=== PATIENT | female | born 1990 | race African-American/Black ===

== ENCOUNTER 2018-09-25 16:18 | Emergency (ER) | payer OTHER ==
[2018-09-25] MEDS ORDERED: NS 1,000 ML IV ONE ×2 (16:26→17:57)
--- NOTE | 2018-09-25 16:29 | EDPHY ---
H & P Source: Patient, Family, Police, EMS Exam Limitations: Clinical condition Time Seen by Provider: 09/25/18 16:26 HPI/ROS: HPI CHIEF COMPLAINT: Acute agitated combative behavior requiring restraints by EMS and police escort. HISTORY OF PRESENT ILLNESS: 27-year-old female unknown medical history presents emergency room by EMS with police escort restrained for acute agitated combative behavior. The patient was out in traffic fighting with cars and screaming at traffic acting psychotic per EMS and police. The patient then lunged at the police requiring them to place her in handcuffs. EMS was contacted she was given 5 mg IM Versed. She arrives to the emergency room sedated, sleeping. She received 5 mg IM Versed prior to arrival. She is not acutely agitated here. History is unobtainable due to sedation. History comes only from police and EMS. No trauma on exam. No trauma reported Past Medical History: Unknown Past Surgical History: Unknown Social History: Unknown Family History: Unknown ROS REVIEW OF SYSTEMS: Sedation prior to arrival. Exam Constitutional sleeping. Stated prior to arrival. Vital signs noted. Blood pressure noted 89s/50s Eyes normal conjunctivae and sclera, EOMI, PERRLA. HENT normal inspection, atraumatic, moist mucus membranes, no epistaxis, neck supple/ no meningismus, no raccoon eyes. Respiratory clear to auscultation bilaterally, normal breath sounds, no respiratory distress, no wheezing. Cardiovascular rate normal, regular rhythm, no murmur, no edema, distal pulses normal. Gastrointestinal soft, non-tender, no rebound, no guarding, normal bowel sounds, no distension, no pulsatile mass. Genitourinary no CVA tenderness. Musculoskeletal no midline vertebral tenderness, full range of motion, no calf swelling, no tenderness of extremities, no meningismus, good pulses, neurovascularly intact. Skin pink, warm, & dry, no rash, skin atraumatic. Neurologic lethargic, sleeping. Snoring Psychiatric normal mood/affect. Heme/Lymph/Immune no lymphadenopathy. 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 Re-evaluate. Monitor for worsening condition. Monitor closely for further sedation. Once the patient is more alert and awake will obtain a history. Re-evaluation: 2199: Patient here in emergency room was highly intoxicated with alcohol received Versed prior to arrival. She was out running in traffic in acting erratically. Patient is now much more sober needs mental health evaluation. Serum alcohol level 230. 2223PM: Patient signed over to Dr. Davila Pending Sobriety at that needs re- evaluation. Most likely will need mental health evaluation. Blood pressure 104/62 Blood pressure 104/62 (Erasmo Guzman) 6:38 a.m.- Patient was seen by the mental health program evaluator now that she is sober. She is not suicidal or homicidal and does not have any psychosis. The hold will be lifted and she will be discharged home. (Trini Davila) Constitutional: Initial Vital Signs Temperature (C) 36.4 C 09/25/18 16:33 Heart Rate 88 09/25/18 16:33 Respiratory Rate 19 09/25/18 16:33 Blood Pressure 86/52 L 09/25/18 16:33 O2 Sat (%) 93 09/25/18 16:33 O2 Delivery Mode Room Air Allergies/Adverse Reactions: No Known Allergies Allergy (Unverified 09/25/18 16:44) Home Medications: Medication Instructions Recorded Unobtainable 09/25/18 - Data Points Laboratory Results: Laboratory Results 09/25/18 16:18 09/25/18 16:18 09/25/18 09/25/18 21:29 21:29 Urine Color YELLOW Urine Appearance CLEAR Urine pH 6.0 (5.0-7.5) Ur Specific [place] 1.010 (1.002-1.030) Urine Protein NEGATIVE (NEGATIVE) Urine Ketones NEGATIVE (NEGATIVE) Urine Blood NEGATIVE (NEGATIVE) Urine Nitrate NEGATIVE (NEGATIVE) Urine Bilirubin NEGATIVE (NEGATIVE) Urine Urobilinogen NEGATIVE EU EU (0.2-1.0) Ur Leukocyte Esterase NEGATIVE (NEGATIVE) Urine Glucose NEGATIVE (NEGATIVE) Urine Opiates Screen NEGATIVE (NEGATIVE) Urine Barbiturates NEGATIVE (NEGATIVE) Ur Phencyclidine Scrn NEGATIVE (NEGATIVE) Ur Amphetamine Screen NEGATIVE (NEGATIVE) U Benzodiazepines Scrn NEGATIVE (NEGATIVE) Urine Cocaine Screen NEGATIVE (NEGATIVE) U Marijuana (THC) Screen NON-NEGATIVE H (NEGATIVE) Medications Given: Discontinued Medications Sodium Chloride (Ns) 1,000 mls @ 0 mls/hr IV EDNOW ONE; Wide Open PRN Reason: Protocol Stop: 09/25/18 16:27 Last Admin: 09/25/18 16:42 Dose: 1,000 mls Sodium Chloride (Ns) 1,000 mls @ 0 mls/hr IV EDNOW ONE; Wide Open PRN Reason: Protocol Stop: 09/25/18 17:58 Last Admin: 09/25/18 17:57 Dose: 1,000 mls Departure - Departure Disposition: Home, Routine, Self-Care Clinical Impression: Alcohol intoxication Qualifiers: Complication of substance-induced condition: with delirium Qualified Code(s): F10.921 - Alcohol use, unspecified with intoxication delirium Condition: Good Instructions: At-Risk Alcohol Use (ED) Additional Instructions: Please return to the emergency department if your worse in any way. Referrals: [facility],. [Clinic] - As per Instructions
[2018-09-25 16:41] LABS: PLATELET COUNT 202 10^3/uL (150-400)
[2018-09-26 06:44] VITALS: BP 113/70
--- NOTE | 2018-09-26 06:56 | ASMTLCPROG ---
Notes Note: Notes: Pt brought in on M1 hold for being gravely disabled, a danger to others and to herself, while intoxicated. Pt's BAL was 230. [facility] clinician met with pt, when she was sober,to evaluate whether she required a mental health assessment. Pt alert and eager to engage in assessment. Behavior was appropriate and cooperative. It was never aggressive; mood was anxious, but stable. Thinking was organized, linear and lucid. She denied any hallucinations. She has experienced SI in the past, but denies it currently. She denies ever planning for or attempting suicide. She has no memory of last night aside from drinking beer. She states that she is homeless. She normally drinks 1-4 beers a day, beginning in the late evening. Yesterday she began drinking at 1:00PM. She reports having been sober for 48 hours prior. This is the first time she has blacked out. She reports drinking on and off for 6-7 years, ever since moving here from [facility]. She states that if she can use marijuana, then she will not drink. "Marijuana helps me pass time without thinking about things". Pt went through [facility] and was assigned to [facility]. Due to an event, which she could not provide details for, she was unable to return there and has been sleeping in the [facility]. She states that on nights that it is not open and she sleeps outside, she drinks. Pt was encouraged to return to [facility] to seek reassessment for [facility]. Pt was given contact information for [facility], [facility], [facility]. The last 3 agencies provide both mental health and substance abuse counseling. Pt states that she begins [facility] tomorrow; she does not recall what class is on Thursday's schedule. Date Signed: 09/26/2018 06:55 AM Electronically Signed By:Rebecca Sethi
== END 2018-09-26 07:06 | disposition home or self-care (01) ==
DX: F10.921 Alcohol use, unspecified with intoxication delirium (principal)
CPT/HCPCS: 80305; G0480

== ENCOUNTER 2018-09-29 12:17 | Emergency (ER) | payer OTHER ==
[2018-09-29] MEDS ORDERED: ACETAMINOPHEN 500 MG TAB PO ONE (12:55)
[2018-09-29] MEDS ORDERED: IBUPROFEN 600 MG TAB PO ONE (12:55)
--- NOTE | 2018-09-29 12:57 | EDPHY ---
H & P Stated Complaint: fell onto left knee two days ago Time Seen by Provider: 09/29/18 12:25 HPI/ROS: Chief complaint: Left knee pain History of present illness: This is a 27-year-old female who presents to the emergency department with EMS for left knee pain. She states 2 days ago she tripped and fell landing directly onto her knee. Since then she has had pain. It makes difficult to sit down or stand up. However she can still walk on it. She denies open wounds. She denies abnormal coolness or paresthesias in the leg. No other trauma reported. - Personal History LMP (Females 10-55): 8-14 Days Ago Current Tetanus Diphtheria and Acellular Pertussis (TDAP): Yes - Medical/Surgical History Hx Asthma: No Hx Chronic Respiratory Disease: No Hx Diabetes: No Hx Cardiac Disease: No Hx Renal Disease: No Hx Alcoholism: Yes Hx HIV/AIDS: No Hx Splenectomy or Spleen Trauma: No Other PMH: Unknown. - Social History Smoking Status: Current every day smoker - Physical Exam Exam: General: Alert, nontoxic. Skin: Old scars to the anterior knee, no acute wounds. Musculoskeletal: She reports severe pain even with very light touch to the anterior aspect of the knee. The rest the knee is nontender. She can flex and extend it well. Knee joint appears grossly stable. Vascular: DP and PT pulses 2+. Neurologic: Sensation intact in the left leg. Constitutional: Initial Vital Signs Temperature (C) 36.4 C 09/29/18 12:23 Heart Rate 96 09/29/18 12:23 Respiratory Rate 16 09/29/18 12:23 Blood Pressure 122/64 H 09/29/18 12:23 O2 Sat (%) 99 09/29/18 12:23 O2 Delivery Mode Room Air Allergies/Adverse Reactions: No Known Allergies Allergy (Unverified 09/25/18 16:44) Home Medications: Medication Instructions Recorded Unobtainable 09/25/18 Medical Decision Making - Diagnostics Imaging Results: Imaging Impressions Knee X-Ray 09/29/18 12:22 Impression: There is no acute osseous abnormality identified. If there is further clinical concern regarding the patient's ongoing knee pain, consider MR imaging. Imaging: I viewed and interpreted images myself Procedures: Procedure: Splint placement. A Velcro knee immobilizing splint was applied. After application of the splint I returned and re-examined the patient. The splint was adequately immobilizing the joint and distal to the splint the patient's circulation and sensation was intact. Patient was fitted with crutches and given instructions ED Course/Re-evaluation: Patient seen under the supervision of my secondary supervising physician Dr. Aleks Dalton. Patient presents for left knee pain after a traumatic injury. The leg is neurovascularly intact. X-rays negative. Likely a soft tissue injury. Home care was discussed. She is referred to Orthopedics for recheck. Return precautions were given. Differential Diagnosis: Included but not limited to contusion, bursitis, sprain or strain, meniscal injury, bony fracture - Data Points Medications Given: Discontinued Medications Acetaminophen (Tylenol) 1,000 mg PO EDNOW ONE Stop: 09/29/18 12:56 Last Admin: 09/29/18 13:01 Dose: 1,000 mg Ibuprofen (Motrin) 600 mg PO EDNOW ONE Stop: 09/29/18 12:56 Last Admin: 09/29/18 13:01 Dose: 600 mg Departure - Departure Disposition: Home, Routine, Self-Care Clinical Impression: Knee pain Qualifiers: Chronicity: acute Laterality: left Qualified Code(s): M25.562 - Pain in left knee Condition: Good Instructions: Knee Pain (ED) Additional Instructions: Follow-up with orthopedics for continued evaluation and care Use ibuprofen 600 mg 3 times a day for the next 2-3 days for pain control If symptoms worsen or new symptoms develop return to the emergency room for recheck Referrals: NONE *PRIMARY CARE P,. [Primary Care Provider] - As per Instructions Rubens Cordero MD [Medical Doctor] - As per Instructions
[2018-09-29 13:16] VITALS: BP 126/74
== END 2018-09-29 13:34 | disposition home or self-care (01) ==
LOC: EDUNIT#
DX: M25.562 Pain in left knee (principal)
CPT/HCPCS: L1830

== ENCOUNTER 2018-10-06 16:22 | Emergency (ER) | payer OTHER ==
[2018-10-06] MEDS ORDERED: ACETAMINOPHEN 500 MG TAB PO ONE (17:54)
--- NOTE | 2018-10-06 17:57 | EDPHY ---
H & P Stated Complaint: left knee pain x 1 week. Time Seen by Provider: 10/06/18 17:55 HPI/ROS: CHIEF COMPLAINT: Left knee pain HISTORY OF PRESENT ILLNESS: Patient is a 27-year-old homeless female who called an ambulance complaining of left knee pain today. She was seen here a week ago for the same. She states that she fell and kneeling position and had severe pain over the distal aspect of her patella. She had x-rays done which were unremarkable. She was discharged in a straight leg brace and receive Tylenol. She states that she has done well until today when she took her brace off because she thought she was better. Throughout the day her pain gradually worsened to the point where she states she could not walk. She called an ambulance and was brought here. However in the waiting room she began chasing some of the other patients around and was running on her knee. She did not limp or show any signs of pain at the time. She now tells me that she has severe pain and trouble moving her leg. She is able to extend her knee without difficulty from the side of the gurney. No obvious swelling or deformity. No erythema Severity: Severe Modifying factors: Patient seems pain-free when not being examined or questioned. REVIEW OF SYSTEMS: Constitutional: denies: chills, fever, recent illness, recent injury EENTM: denies: blurred vision, double vision, nose congestion Respiratory: denies: cough, shortness of breath Cardiac: denies: chest pain, irregular heart rate, lightheadedness, palpitations Gastrointestinal/Abdominal: denies: abdominal pain, diarrhea, nausea, vomiting, blood streaked stools Genitourinary: denies: dysuria, frequency, hematuria, pain Musculoskeletal: See HPI Skin: denies: lesions, rash, jaundice, bruising Neurological: denies: headache, numbness, paresthesia, tingling, dizziness, weakness Hematologic/Lymphatic: denies: blood clots, easy bleeding, easy bruising Immunologic/allergic: denies: HIV/AIDS, transplant 10 systems reviewed and negative except as noted EXAM: GENERAL: Well-appearing, well-nourished and in no acute distress. HEAD: Atraumatic, normocephalic. EYES: Pupils equal round and reactive to light, extraocular movements intact, sclera anicteric, conjunctiva are normal. ENT: TMs normal, nares patent, oropharynx clear without exudates. Moist mucous membranes. NECK: Normal range of motion, supple without lymphadenopathy or JVD. LUNGS: Breath sounds clear to auscultation bilaterally and equal. No wheezes rales or rhonchi. HEART: Regular rate and rhythm without murmurs, rubs or gallops. ABDOMEN: Soft, nontender, normoactive bowel sounds. No guarding, no rebound. No masses appreciated. BACK: No CVA tenderness, no spinal tenderness, step-offs or deformities EXTREMITIES: Left knee pain, no swelling or deformity. No erythema. Able to extend knee from hanging off the side of the bed. Able to bear weight. NEUROLOGICAL: Cranial nerves II through XII grossly intact. Normal speech, normal gait. 5/5 strength, normal movement in all extremities, normal sensation , normal reflexes PSYCH: Normal mood, normal affect. SKIN: Warm, dry, normal turgor, no visible rashes or lesions. Source: Patient Exam Limitations: No limitations - Personal History Current Tetanus Diphtheria and Acellular Pertussis (TDAP): Yes - Medical/Surgical History Hx Asthma: No Hx Chronic Respiratory Disease: No Hx Diabetes: No Hx Cardiac Disease: No Hx Renal Disease: No Hx Alcoholism: Yes Hx HIV/AIDS: No Hx Splenectomy or Spleen Trauma: No Other PMH: Unknown. - Social History Smoking Status: Current every day smoker Constitutional: Initial Vital Signs Temperature (C) 37.1 C 10/06/18 17:06 Heart Rate 76 10/06/18 17:06 Respiratory Rate 18 10/06/18 17:06 Blood Pressure 98/67 L 10/06/18 17:06 O2 Sat (%) 96 10/06/18 17:06 O2 Delivery Mode Room Air Allergies/Adverse Reactions: No Known Allergies Allergy (Unverified 09/25/18 16:44) Home Medications: Medication Instructions Recorded Unobtainable 09/25/18 Medical Decision Making - Diagnostics Imaging Results: Imaging Impressions Knee X-Ray 10/06/18 17:54 Impression: No acute osseous findings. Imaging: Discussed imaging studies w/ call center operator Radiologist ED Course/Re-evaluation: I suggested that we repeat the x-ray and treat her again with Tylenol and replace her straight leg brace. She asked how long that were taken tells me that she needs to leave before it gets too dark. 6:30 p.m. The patient's x-rays reassuring. No sign of fracture. Has been placed back in a straight leg brace and is able to ambulate. Will discharge at this time. She is eager to go. Discussed indications for returning. Differential Diagnosis: Partial list of the Differential diagnosis considered include but were not limited to; contusion, traumatic bursitis and although unlikely based on the history and physical exam, I also considered patella fracture, tendon rupture, tibial plateau fracture, occult fracture, compartment syndrome. I discussed these differential diagnoses and the plan with the patient as well as the usual and expected course. The patient understands that the diagnosis is provisional and that in medicine we are not always correct and that further workup is often warranted. Usual and customary warnings were given. All of the patient's questions were answered. The patient was instructed to return to the emergency department should the symptoms at all worsen or return, otherwise to followup with the physician as we discussed. - Data Points Medications Given: Discontinued Medications Acetaminophen (Tylenol) 1,000 mg PO EDNOW ONE Stop: 10/06/18 17:55 Last Admin: 10/06/18 18:04 Dose: 1,000 mg Departure - Departure Disposition: Home, Routine, Self-Care Clinical Impression: Left anterior knee pain Condition: Fair Instructions: Knee Pain (ED) Referrals: NONE *PRIMARY CARE P,. [Primary Care Provider] - As per Instructions Saravanan Anderson MD [Medical Doctor] - 5-7 days, call for appt.
[2018-10-06 18:48] VITALS: BP 118/79
--- NOTE | 2018-10-07 12:37 | ASMTCAGE ---
CAGE Additional Comments CM SBIRT order received from patient' svisit last evening. Chart reviewed. Patient w history of alcoholism. CM available to provide resources prn Date Signed: 10/07/2018 12:36 PM Electronically Signed By:Jennifer Sumner RN
== END 2018-10-06 18:48 | disposition home or self-care (01) ==
LOC: EDUNIT#
DX: M25.562 Pain in left knee (principal); Z59.0 Homelessness

== ENCOUNTER 2018-10-10 19:05 | Emergency (ER) | payer OTHER ==
--- NOTE | 2018-10-10 19:13 | EDPHY ---
H & P Time Seen by Provider: 10/10/18 19:05 HPI/ROS: CHIEF COMPLAINT: Medical screening for incarceration HISTORY OF PRESENT ILLNESS: 27-year-old homeless female arrives via ambulance accompanied by police for medical screening prior to incarceration allegedly for outstanding warrants. Per EMS and police she was found running in traffic, was running from police. Eventually she was apprehended and brought to the ER. She has no complaints of pain or discomfort. She was acting aggressively, spitting, necessitated 4 point restraints and a spit ramírez. She admits to alcohol use. Denies: Head injury, chest pain or injury, back pain injury, abdominal pain or injury, suicidal or homicidal ideation REVIEW OF SYSTEMS: 10 systems reviewed and negative with the exception of the elements mentioned in the history of present illness PAST MEDICAL & SURGICAL HISTORY: No pertinent medical or surgical history SOCIAL HISTORY: Self admitted alcohol use this evening. Homeless PHYSICAL EXAM (Prior to examination, patient consented to physical exam, hands were washed and my usual and customary physical exam procedures followed) 1) GENERAL: Untidy, foul-smelling, [address] with patient making aggressive gestures and movements trying to get out of the restraints. She is not actively spitting but there is spit on her spit ramírez. She is cursing. 2) HEAD: Normocephalic, atraumatic 3) HEENT: Pupils equal, round, reactive to light bilaterally. Sclera anicteric. 4) NECK: Full range of motion, no meningeal signs. 5) LUNGS: Clear auscultation bilaterally, no wheezes, no rhonchi, no retractions. 6) HEART: Regular rate and rhythm, no murmur, no heave, no gallop. 7) ABDOMEN: No guarding, no rebound, no focal tenderness, negative McBurney's, negative Oh's, negative Rovsing's, negative peritoneal sign, 8) MUSCULOSKELETAL: Moving all extremities, no focal areas of tenderness, no obvious trauma. No peripheral edema or discoloration. 9) BACK: No CVA tenderness, no midline vertebral tenderness, no fluctuance, no step-off, no obvious trauma, no visual or palpable abnormality. 10) SKIN: No rash, no petechiae. 11) Psychiatric: Patient is oriented X 3, there is no agitation. DIFFERENTIAL DIAGNOSIS: In no particular orderincluding but not limited to hypoglycemia, infectious process, electrolyte abnormality, head injury and intoxicants. - Medical/Surgical History Hx Asthma: No Hx Chronic Respiratory Disease: No Hx Diabetes: No Hx Cardiac Disease: No Hx Renal Disease: No Hx Alcoholism: Yes Hx HIV/AIDS: No Hx Splenectomy or Spleen Trauma: No Other PMH: Unknown. - Social History Smoking Status: Current every day smoker Constitutional: Initial Vital Signs Heart Rate 105 H 10/10/18 19:11 Respiratory Rate 18 10/10/18 19:11 Blood Pressure 115/70 10/10/18 19:11 O2 Sat (%) 93 10/10/18 19:11 O2 Delivery Mode Room Air Allergies/Adverse Reactions: No Known Allergies Allergy (Unverified 09/25/18 16:44) Home Medications: Medication Instructions Recorded Unobtainable 09/25/18 Medical Decision Making ED Course/Re-evaluation: 7:13 p.m.: Breathalyzer alcohol 162, reviewed old medical records. Patient has been seen emergency department numerous instances. Specifically on 2018 she was seen for acute agitation and combative behavior which resolved upon becoming sober from alcohol. She was also evaluated previously in the ER after she self presented and was chasing patients in the waiting room. At this time I do not identify any focal areas of trauma the patient has no complaints of pain or discomfort. Do not think that imaging of the head or other body region indicated at this time. She will be discharged to skilled nursing, has been medically screened for incarceration. Care of patient under supervision of primary supervising physician Dr Aleks Dalton with whom I discussed case. Departure - Departure Disposition: Law Enforcement/Court/Correction Clinical Impression: Alcohol intoxication Condition: Good Instructions: Alcohol Intoxication (ED) Additional Instructions: You have been medically screened for incarceration Referrals: Patient,NotPresent [Unknown] - As per Instructions
[2018-10-10 19:14] VITALS: BP 115/70
== END 2018-10-10 19:21 ==
LOC: EDUNIT#
DX: F10.920 Alcohol use, unspecified with intoxication, uncomplicated (principal); Z59.0 Homelessness

== ENCOUNTER 2018-10-12 00:49 | Emergency (ER) | payer OTHER ==
[2018-10-12 00:53] VITALS: BP 119/76
--- NOTE | 2018-10-12 00:56 | EDPHY ---
H & P Stated Complaint: cough,chills Time Seen by Provider: 10/12/18 00:50 HPI/ROS: HPI The patient presents with cough, rhinorrhea, subjective fevers since 7:00 p.m. Tonight. She is brought in by ambulance from the [facility] where she presented earlier tonight. She requested ambulance transport to the emergency department for further evaluation. She says she has had a mild dry cough associated with clear rhinorrhea and says she has felt both hot and cold 7 7:00 a.m.. She is not aware of any sick contacts. She denies any other symptoms. Upon review of old records, she has been in the emergency department several times this month for alcohol and medical clearance for fpc. REVIEW OF SYSTEMS 10 systems were reviewed and negative with the exception of the elements mentioned in the history of present illness. PMHx: Denies diabetes or hypertension Soc Hx: From [place] originally, previous visits for alcohol intoxication PHYSICAL General Appearance: Alert, no distress Eyes: Pupils equal and round no pallor or injection ENT, Mouth: Mucous membranes moist, posterior pharynx unremarkable Respiratory: There are no retractions, lungs are clear to auscultation Cardiovascular: Regular rate and rhythm Gastrointestinal: Abdomen is soft and non-tender, no masses, bowel sounds normal Neurological: A&O, moves all extremities Skin: Warm and dry, no rashes Musculoskeletal: Neck is supple non tender Extremities: symmetrical, full range of motion Psychiatric: Patient is oriented X 3, there is no agitation Source: Patient, EMS Exam Limitations: No limitations - Personal History LMP (Females 10-55): Over 28 Days Ago Current Tetanus/Diphtheria Vaccine: Yes - Medical/Surgical History Hx Asthma: No Hx Chronic Respiratory Disease: No Hx Diabetes: No Hx Cardiac Disease: No Hx Renal Disease: No Hx Alcoholism: Yes Hx HIV/AIDS: No Hx Splenectomy or Spleen Trauma: No Other PMH: denies - Social History Smoking Status: Current every day smoker Constitutional: Initial Vital Signs Temperature (C) 36.9 C 10/12/18 00:50 Heart Rate 56 L 10/12/18 00:50 Respiratory Rate 16 10/12/18 00:50 Blood Pressure 119/76 10/12/18 00:50 O2 Sat (%) 97 10/12/18 00:50 O2 Delivery Mode Room Air Allergies/Adverse Reactions: No Known Allergies Allergy (Verified 10/12/18 00:52) Home Medications: Medication Instructions Recorded NK [No Known Home Meds] 10/12/18 Medical Decision Making Differential Diagnosis: 27-year-old homeless female [facility] with URI type symptoms. Vital signs are normal. Patient is well-appearing. Suspect URI, longterm seeking behavior, less likely influenza. I have offered her ibuprofen and Tylenol, however she declines. She will be discharged. Departure - Departure Disposition: Home, Routine, Self-Care Clinical Impression: Homeless URI (upper respiratory infection) Qualifiers: URI type: unspecified URI Qualified Code(s): J06.9 - Acute upper respiratory infection, unspecified Condition: Good Instructions: Upper Respiratory Infection (ED) Additional Instructions: Please make sure to drink plenty of fluids. You can take ibuprofen or Tylenol as needed for your symptoms. Referrals: [facility],. [Clinic] - As per Instructions
== END 2018-10-12 01:01 | disposition home or self-care (01) ==
LOC: EDUNIT#
DX: J06.9 Acute upper respiratory infection, unspecified (principal)

== ENCOUNTER 2018-10-20 17:40 | Emergency (ER) | payer OTHER ==
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
[2018-10-20 18:34] LABS: PLATELET COUNT 284 10^3/uL (150-400)
[2018-10-20 19:31] LABS: CREATINE KINASE 88 IU/L (0-156)
[2018-10-21 00:14] VITALS: BP 110/66
== END 2018-10-21 00:46 ==
LOC: EDUNIT#
DX: F10.920 Alcohol use, unspecified with intoxication, uncomplicated (principal); Y90.8 Blood alcohol level of 240 mg/100 ml or more
CPT/HCPCS: G0480

== ENCOUNTER 2018-12-06 23:06 | Emergency (ER) | payer OTHER ==
[2018-12-06] MEDS ORDERED: LORazepam 2 MG/ML INJ IM ONE ×2 (23:17→23:31)
[2018-12-06] MEDS ORDERED: HALOPERIDOL LACT 5 MG/ML INJ IM ONE (23:17)
--- NOTE | 2018-12-06 23:18 | EDPHY ---
H & P Source: Patient, Police, RN/MD, EMS Exam Limitations: Clinical condition - Medical/Surgical History Hx Asthma: No Hx Chronic Respiratory Disease: No Hx Diabetes: No Hx Cardiac Disease: No Hx Renal Disease: No Hx Alcoholism: Yes Hx HIV/AIDS: No Hx Splenectomy or Spleen Trauma: No Other PMH: Unknown. - Social History Smoking Status: Current every day smoker Time Seen by Provider: 12/06/18 23:15 HPI/ROS: HPI: This is a 27-year-old female who presents with Chief Complaint: M1 hold, erratic psychotic behavior Location: Psychiatric Quality: Erratically, psychotic behavior Duration: Unknown Signs and Symptoms: Timing: Acute on chronic Severity: Severe Context: Patient presents via EMS with spit mask on yelling profanities into the emergency room. transportation officer notice patient walking office a down the road. She was waving her hands when he approached. She was clearly intoxicated and acting erratically. She reports that there were recommend in the road that were talking to her. Patient has a history of alcoholism and had cans of beers present on her. Patient recently bonded out of long term today and has broke for pay hernandez with alcohol intoxication. Modifying Factors: EMS gave IM Haldol 5 mg with no relief Comment: ROS: Limited due to intoxication MEDICAL/SURGICAL/SOCIAL HISTORY: Medical history: Alcoholism Surgical history: Denies Social history: Homeless. + tobacco user. Family history noncontributory. CONSTITUTIONAL: Intoxicated, spit ramírez, uncooperative, thrashing around and yelling and spitting, awake and alert, no obvious distress HEENT: Atraumatic and normocephalic, PERRL, EOMI. Nares patent; no rhinorrhea; no nasal mucosal edema. Tympanic membranes clear. Oropharynx clear, no exudate and moist pink mucosa. Airway patent. No lymphadenopathy. No meningismus. Cardiovascular: Normal S1/S2, tachycardia, regular rhythm, without murmur rub or gallop. PULMONARY/CHEST: Symmetrical and nontender. Clear to auscultation bilaterally. Good air movement. No accessory muscle usage. ABDOMEN: Soft, nondistended, nontender, no rebound, no guarding, no peritoneal signs, no masses or organomegaly. No CVAT. EXTREMITIES: 2/2 pulses, strength 5/5, no deformities, no clubbing, no cyanosis or edema. Swinging arms and legs trying to hit officers. NEUROLOGICAL: no focal neuro deficits. GCS 15. Speech slightly slurred. Spitting. SKIN: Warm and dry, no erythema. no rash. Good capillary refill. (Kathy Spears) Constitutional: Initial Vital Signs Temperature (C) 36.6 C 12/06/18 23:23 Heart Rate 103 H 12/06/18 23:23 Respiratory Rate 18 12/06/18 23:23 Blood Pressure 97/53 L 12/06/18 23:23 O2 Sat (%) 93 12/06/18 23:23 O2 Delivery Mode Room Air Allergies/Adverse Reactions: No Known Allergies Allergy (Verified 12/06/18 23:23) Home Medications: Medication Instructions Recorded Multivitamin [One Daily] 12/06/18 Medical Decision Making ED Course/Re-evaluation: Vital signs reviewed and show tachycardia. Placed on personnel monitor. Due to concerns of staff and patient's safety; placed in 4 point restraints and given IM Haldol 5 mg and IM Ativan 2 mg Agree with M1 hold. Labs and UDS ordered. 2330: Notified by RN that patient sitting up in fighting against 4 point restraints. another IM Ativan 2 mg given 0025: Labs reviewed, potassium 3.1, magnesium level ordered, given IV potassium 20 mEq, creatinine 0.6, EtOH 177. Still waiting urine sample. Given 1 L normal saline as systolic in the 80s while patient is sleeping. 0045: End of Shift. Signed over to Dr. Guzman pending re-evaluation in a.m. and discharge once medically clear to law enforcement. This patient was seen under the supervision of my secondary supervising physician. I evaluated care for this patient with attending. (Kathy Spears) 0533: Patient here in emergency room was yelling upon arrival to the emergency room. She received IM Haldol and IM Ativan. She was also intoxicated with alcohol. At this time she is sleeping. 0633: Patient ambulated well throughout the emergency room without difficulty. She is clinically sober now. She reports to me she had anxiety attack after seeing a raccoon. She is now calmer and cooperative. Clinically sober and safe for discharge. Patient does not appear psychotic does not want hurt herself or anybody else. She sober nicely. Patient was not on M1 hold she was on an arc hold. She presents room somewhat agitated, screaming and psychotic however this was due to acute alcohol intoxication. She sober throughout the night in the emergency room and on re- examination early this morning at 6:30 a.m. She was, cooperative she denies SI or HI denies hallucination does not appear acutely psychotic or gravely disabled. She was just in fact acutely intoxicated with alcohol. She can be safely discharged to police arc. (Erasmo Guzman) Differential Diagnosis: Altered mental status including but not limited to hypoglycemia, infectious process, electrolyte abnormality, head injury and intoxicants. (Kathy Spears) - Data Points Laboratory Results: Laboratory Results 12/06/18 23:56 12/06/18 23:56 12/06/18 12/06/18 12/06/18 23:56 23:56 23:56 WBC RBC Hgb Hct MCV MCH MCHC RDW Plt Count MPV Neut % (Auto) Lymph % (Auto) Hart % (Auto) Eos % (Auto) Baso % (Auto) Nucleat RBC Rel Count Absolute Neuts (auto) Absolute Lymphs (auto) Absolute Monos (auto) Absolute Eos (auto) Absolute Basos (auto) Absolute Nucleated RBC Immature Gran % Immature Gran # Sodium 145 mEq/L mEq/L (135-145) Potassium 3.1 mEq/L L mEq/L (3.5-5.2) Chloride 109 mEq/L mEq/L (97-110) Carbon Dioxide 23 mEq/l mEq/l (22-31) Anion Gap 13 mEq/L mEq/L (6-14) BUN 12 mg/dL mg/dL (7-23) Creatinine 0.6 mg/dL mg/dL (0.6-1.0) Estimated GFR > 60 Glucose 88 mg/dL mg/dL (70-100) Calcium 9.0 mg/dL mg/dL (8.5-10.4) Magnesium 1.9 mg/dL mg/dL (1.6-2.3) Beta HCG, Qual NEGATIVE Urine Opiates Screen Urine Barbiturates Ur Phencyclidine Scrn Ur Amphetamine Screen U Benzodiazepines Scrn Urine Cocaine Screen U Marijuana (THC) Screen Ethyl Alcohol 177 mg/dL H mg/dL (0-10) 12/06/18 12/06/18 23:56 06:15 WBC 6.72 10^3/uL 10^3/uL (3.80-9.50) RBC 4.36 10^6/uL 10^6/uL (4.18-5.33) Hgb 13.0 g/dL g/dL (12.6-16.3) Hct 38.9 % % (38.0-47.0) MCV 89.2 fL fL (81.5-99.8) MCH 29.8 pg pg (27.9-34.1) MCHC 33.4 g/dL g/dL (32.4-36.7) RDW 12.7 % % (11.5-15.2) Plt Count 198 10^3/uL 10^3/uL (150-400) MPV 10.7 fL fL (8.7-11.7) Neut % (Auto) 50.0 % % (39.3-74.2) Lymph % (Auto) 41.4 % % (15.0-45.0) Hart % (Auto) 8.0 % % (4.5-13.0) Eos % (Auto) 0.0 % L % (0.6-7.6) Baso % (Auto) 0.3 % % (0.3-1.7) Nucleat RBC Rel Count 0.0 % % (0.0-0.2) Absolute Neuts (auto) 3.36 10^3/uL 10^3/uL (1.70-6.50) Absolute Lymphs (auto) 2.78 10^3/uL 10^3/uL (1.00-3.00) Absolute Monos (auto) 0.54 10^3/uL 10^3/uL (0.30-0.80) Absolute Eos (auto) 0.00 10^3/uL L 10^3/uL (0.03-0.40) Absolute Basos (auto) 0.02 10^3/uL 10^3/uL (0.02-0.10) Absolute Nucleated RBC 0.00 10^3/uL 10^3/uL (0-0.01) Immature Gran % 0.3 % % (0.0-1.1) Immature Gran # 0.02 10^3/uL 10^3/uL (0.00-0.10) Sodium Potassium Chloride Carbon Dioxide Anion Gap BUN Creatinine Estimated GFR Glucose Calcium Magnesium Beta HCG, Qual Urine Opiates Screen NEGATIVE (NEGATIVE) Urine Barbiturates NEGATIVE (NEGATIVE) Ur Phencyclidine Scrn NEGATIVE (NEGATIVE) Ur Amphetamine Screen NEGATIVE (NEGATIVE) U Benzodiazepines Scrn NEGATIVE (NEGATIVE) Urine Cocaine Screen NEGATIVE (NEGATIVE) U Marijuana (THC) Screen NEGATIVE (NEGATIVE) Ethyl Alcohol Medications Given: Discontinued Medications Haloperidol Lactate (Haldol Injection) 5 mg IM EDNOW ONE Stop: 12/06/18 23:18 Last Admin: 12/06/18 23:21 Dose: 5 mg Sodium Chloride (Ns) 1,000 mls @ 0 mls/hr IV EDNOW ONE; Wide Open PRN Reason: Protocol Stop: 12/07/18 00:38 Last Admin: 12/07/18 00:46 Dose: 1,000 mls Potassium Chloride (Potassium Cl 10 Meq (Premix)) 100 mls @ 100 mls/hr IV Q1H CARI Stop: 12/07/18 02:59 Last Admin: 12/07/18 01:52 Dose: 100 mls Sodium Chloride (Ns) 1,000 mls @ 0 mls/hr IV ONCE ONE PRN Reason: Wide Open Stop: 12/07/18 02:20 Last Admin: 12/07/18 02:22 Dose: 1,000 mls Lorazepam (Ativan Injection) 1 mg IM EDNOW ONE Stop: 12/06/18 23:18 Last Admin: 12/06/18 23:21 Dose: 1 mg Lorazepam (Ativan Injection) 2 mg IM ONCE ONE Stop: 12/06/18 23:32 Last Admin: 12/06/18 23:35 Dose: 2 mg Potassium Chloride (Klor-Con) 40 meq PO ONCE ONE Stop: 12/07/18 00:26 Last Admin: 12/07/18 01:06 Dose: Not Given Departure - Departure Disposition: Home, Routine, Self-Care Clinical Impression: Alcohol intoxication delirium, Hypokalemia Condition: Good Instructions: Alcohol Intoxication (ED) Additional Instructions: 1. Medically cleared for long term. Referrals: [facility],. [Clinic] - As per Instructions [facility] [Outside] - As per Instructions
[2018-12-06] MEDS ORDERED: LORazepam 2 MG/ML INJ ONE (23:31)
[2018-12-07 00:07] LABS: PLATELET COUNT 198 10^3/uL (150-400)
[2018-12-07] MEDS ORDERED: POTASSIUM CL 20 MEQ TAB PO ONE (00:25)
[2018-12-07] MEDS ORDERED: POTASSIUM Cl (KCl) 100 ML IV ONE (00:27)
[2018-12-07] MEDS ORDERED: NS 1,000 ML IV ONE ×2 (00:37→02:19)
[2018-12-07] MEDS: POTASSIUM Cl (KCl) 100 ML IV SCH ×2 (00:53→01:52)
[2018-12-07 06:23] VITALS: BP 107/76
== END 2018-12-07 07:20 | disposition home or self-care (01) ==
LOC: EDUNIT#
DX: F10.921 Alcohol use, unspecified with intoxication delirium (principal); E86.9 Volume depletion, unspecified; E87.6 Hypokalemia
CPT/HCPCS: 80305; 96374; G0480; J2060; J3480